=== PATIENT | female | born 1950 | race Caucasian/White ===

== ENCOUNTER → 2020-12-27 | Outpatient (CLI) | payer OTHER ==
[~2020-12-27] MED LIST: ADULT LOW DOSE81 MG PO; ALENDRONATE PO; CALCIUM PO; FISHOIL PO; GLUCOSAMINE &1 EACH PO; LASIX 40 MG TAB40 M1 PO; LIPITOR 40 MG T40 M1 PO; MOBIC15 MG PO; NORCO5 PO; POTASSIUM PO; TYLENOL325 M1 PO; VITAMIN B-125000 MCG SUBLING; VITAMIN C + RO500 MG PO; VITAMIN E400 UNIT PO; ZANAFLEX4 MG PO; hydrocodone PO
== END ==
LOC: SJCVCIMAG 09:48
PROVIDERS: ATTEND Internal Medicine Cardiovascular Disease
DX: I10 Essential (primary) hypertension (principal); S22.080A Wedge compression fracture of T11-T12 vertebra, initial encounter for closed fracture; R09.89 Other specified symptoms and signs involving the circulatory and respiratory systems; E78.5 Hyperlipidemia, unspecified; M54.6 Pain in thoracic spine; Z88.8 Allergy status to other drugs, medicaments and biological substances; Z72.89 Other problems related to lifestyle; Z79.899 Other long term (current) drug therapy; X58.XXXA Exposure to other specified factors, initial encounter; Y93.89 Activity, other specified; Y92.89 Other specified places as the place of occurrence of the external cause; Y99.8 Other external cause status

== ENCOUNTER → 2020-12-27 | Outpatient (CLI) | payer OTHER | LOC: RAD 09:52 | PROVIDERS: ATTEND Internal Medicine Cardiovascular Disease | DX: S22.070A Wedge compression fracture of T9-T10 vertebra, initial encounter for closed fracture (principal); M43.8X4 Other specified deforming dorsopathies, thoracic region; X58.XXXA Exposure to other specified factors, initial encounter; Y93.89 Activity, other specified; Y92.89 Other specified places as the place of occurrence of the external cause; Y99.8 Other external cause status ==

== ENCOUNTER → 2021-01-01 | Outpatient (CLI) | payer OTHER ==
[~2021-01-01] VITALS: Ht 152.4 cm; Wt 51.8 kg
[2021-01-01 09:13] VITALS: BP 163/71
[2021-01-01 09:18] LABS: HEMATOCRIT 33.9 % (37.0-47.0); HEMOGLOBIN 11.5 gm/dL (12.0-15.0); MCH 29.7 pg (26.0-34.0); MCHC 33.7 g/dL (28.0-37.0); MCV 87.9 fL (80.0-100.0); RBC 3.86 mil/uL (4.20-5.00); RDW 13.2 % (10.5-14.5); WBC 6.1 thou/uL (4.0-11.0)
--- NOTE | 2021-01-01 11:46 | NUR ---
Pt awake, A/OX4, VSS. PT AMBULATED TO THE RESTROOM WITH STANDBY ASSISTANCE, SHE DID HAVE A SLIGHTLY UNSTEADY GAIT HOWEVER EASILY CORRECTED. PT AND FEEL COMFORTABLE ABOUT PT GOING HOME. PT TO FINISH HER ABX THEN DISCHARGE. PT AND VERBALIZED UNDERSTANDING AND AGREE WITH PLAN.
== END | disposition home or self-care (01) ==
LOC: CATH 07:30
PROVIDERS: ATTEND Nuclear Medicine Nuclear Cardiology
DX: M80.08XA Age-related osteoporosis with current pathological fracture, vertebra(e), initial encounter for fracture (principal); M54.9 Dorsalgia, unspecified; I10 Essential (primary) hypertension; E78.5 Hyperlipidemia, unspecified; Z98.890 Other specified postprocedural states; Z79.899 Other long term (current) drug therapy; Z82.49 Family history of ischemic heart disease and other diseases of the circulatory system; Z98.51 Tubal ligation status; Z98.41 Cataract extraction status, right eye; Z98.42 Cataract extraction status, left eye; Z88.2 Allergy status to sulfonamides; Z88.8 Allergy status to other drugs, medicaments and biological substances

== ENCOUNTER → 2021-01-24 | Outpatient (CLI) | payer OTHER | LOC: SJCVC 10:32 | PROVIDERS: ATTEND Nuclear Medicine Nuclear Cardiology | DX: S22.000G Wedge compression fracture of unspecified thoracic vertebra, subsequent encounter for fracture with delayed healing (principal); E78.5 Hyperlipidemia, unspecified; I10 Essential (primary) hypertension; Z72.89 Other problems related to lifestyle; Z88.2 Allergy status to sulfonamides; Z88.6 Allergy status to analgesic agent; Z88.8 Allergy status to other drugs, medicaments and biological substances; Z79.891 Long term (current) use of opiate analgesic; Z79.899 Other long term (current) drug therapy; X58.XXXD Exposure to other specified factors, subsequent encounter ==

== ENCOUNTER → 2021-02-20 | Outpatient (CLI) | payer OTHER | LOC: SJCVCIMAG 08:19 | PROVIDERS: ATTEND Internal Medicine Cardiovascular Disease | DX: I10 Essential (primary) hypertension (principal); E78.5 Hyperlipidemia, unspecified; Z88.1 Allergy status to other antibiotic agents; Z88.2 Allergy status to sulfonamides; Z88.8 Allergy status to other drugs, medicaments and biological substances; Z72.89 Other problems related to lifestyle; Z79.899 Other long term (current) drug therapy ==